=== PATIENT | male | born 1955 | race Caucasian/White ===

== ENCOUNTER 2022-03-10 09:30 | Emergency (ER) | payer OTHER, SELFPAY ==
[2022-03-10] VITALS (18 sets, daily range): BP systolic 134–180; BP diastolic 82–117; PULSE 80–104; RESP 10–24; TEMP 36.4; O2SAT 94–100
--- NOTE | ~2022-03-10 | XR_ITS ---
XR chest 1V portable DATE: 03/10/2022 10:39 INDICATION: Left arm numbness, weakness. Smoker. TECHNIQUE: Portable upright AP views on 03/10/2027 at 1037 1038 hours COMPARISON: None FINDINGS: Normal heart size. Minimal aortic tortuosity. No hilar or mediastinal enlargement. Mild hyperinflation of the lungs. No pulmonary infiltrate or consolidation, pleural effusion or pulmo nary vascular congestion or pneumothorax. Osteopenia. IMPRESSION: Mild hyperinflation; no active cardiac pulmonary disease Osteopenia Reviewed, dictated and finalized at location A.
--- NOTE | ~2022-03-10 | CT_ITS ---
EXAMINATION: CT brain wo con DATE: 03/10/2022 11:22 INDICATION: Frontal headache. Left arm paresthesias. TECHNIQUE: Computed tomography (CT) of the head was performed without intravenous contrast. The mA wa s adjusted according to patient size. Iterative reconstruction technique was employed. Exam dose: 60 5.33 mGy-cm total exam DLP. COMPARISON: None FINDINGS: Bilateral vertebral artery and carotid siphon and supraclinoid internal carotid artery calc ifications. There is nonspecific diminished attenuation of the cerebral white matter, likely due to chronic small vessel ischemic changes. Normal ventricular size. No midline shift or mass effect. No intracranial mass lesion or hemorrhage o r cerebrovascular accident. No subdural or epidural hematoma. Mild soft tissue density in the posterior right maxillary sinus and right ethmoid air cells, minimal soft tissue thickening of the ethmoid air cells bilaterally. The paranasal sinuses are otherwise unre markable. Normal development and aeration of the mastoid air cells. No fracture or bone destruction of the cranial vault. IMPRESSION: Cerebral atherosclerosis and chronic small vessel ischemic changes of the cerebral white matter No acute intracranial finding Reviewed, dictated and finalized at Location [facility]. Reviewed, dictated and finalized at location A.
--- NOTE | 2022-03-10 10:09 | ECG_ITS ---
Measurements Intervals [place] Rate: 88 P: 29 LA: 159 QRS: 46 QRSD: 82 T: 48 QT: 347 QTc: 422 Interpretive Statements SINUS RHYTHM INCOMPLETE RIGHT BUNDLE BRANCH BLOCK BASELINE ARTIFACT- II, III, AVF, V1 BORDERLINE ECG Electronically Signed On 03-10-2022 15:20:33 CDT by Levy Paul D.O.
--- NOTE | 2022-03-10 10:18 | ED.NEUROSD ---
HPI - Neuro Symptoms/Deficit General Chief Complaint: Neuro Symptoms/Deficit <KENNETH Ayala Last Filed: 03/10/22 13:43> Stated Complaint: L arm numbness <KENNETH Ayala Last Filed: 03/10/22 13:43> Time Seen by Provider: 03/10/22 10:09 <KENNETH Ayala Last Filed: 03/10/22 13:43> Source: patient <KENNETH Ayala Last Filed: 03/10/22 13:43> Mode of arrival: ambulatory <KENNETH Ayala Last Filed: 03/10/22 13:43> Limitations: no limitations <KENNETH Ayala Last Filed: 03/10/22 13:43> History of Present Illness HPI Narrative: This is a 66-year-old male that presents to the emergency department for paresthesias of the left arm noted this morning. Reports a little after he woke up he noted some tingling in his left arm. He thinks this started around 730. It has been constant since onset. Denies any other focal numbness or weakness. He is not having any chest pain, neck pain, or arm pain. Denies vision changes or vomiting. <KENNETH Ayala Last Filed: 03/10/22 13:43> Related Data Allergies/Adverse Reactions: Allergies Allergy/AdvReac Type Severity Reaction Status Date / Time No Known Allergies Allergy Verified 03/10/22 09:51 <KENNETH Ayala Last Filed: 03/10/22 13:43> Review of Systems Review of Systems: CONSTITUTIONAL: Denies fever EYES: Denies visual changes CARDIOVASCULAR: Denies chest pain, or edema. RESPIRATORY: Denies dyspnea. GASTROINTESTINAL: Denies vomiting MUSCULOSKELETAL: Denies back pain, joint pain, or myalgia. NEUROLOGIC: Denies numbness, or weakness. <KENNETH Ayala Last Filed: 03/10/22 13:43> All systems reviewed & are unremarkable except as noted in HPI and below <KENNETH Ayala Last Filed: 03/10/22 13:43> PMFSH Past Medical History Medical History: Medical History (Updated 03/10/22 @ 13:41 by Ana Rodriguez PA-C) History of hyperlipidemia History of hypertension <Ana Rodriguez PA-C - Last Filed: 03/10/22 13:43> Social History Social History: Social History (Updated 03/10/22 @ 10:20 by Ana Rodriguez PA-C) Smoking status: Current every day smoker <Ana Rodriguez PA-C - Last Filed: 03/10/22 13:43> Exam Narrative: GENERAL: Well-appearing, well-nourished, and in no acute distress. HEAD: Normocephalic, atraumatic. EYES: PERRLA and EOMI. ENT: Nares clear, no rhinorrhea or epistaxis. Mucous membranes moist. Oropharynx without tonsillar hypertrophy exudate or other lesions. Bilateral TMs pearly hurtado non-bulging NECK: Supple. No adenopathy or masses. CHEST: Clear to auscultation. No respiratory distress. No wheezes rales or rhonchi HEART: Regular rate and rhythm. No murmur heard. Normal peripheral pulses. EXTREMITIES: Normal range of motion. No edema. Strength equal in bilateral upper and lower extremities (5/5). Normal sensation SKIN: Warm, dry, no rash. NEURO: No focal deficits. Alert and oriented x3. Cranial nerves II through XII grossly intact PSYCH: Normal mood and affect <Ana Rodriguez PA-C - Last Filed: 03/10/22 13:43> Course FISHING ROD TRIMMER/PA Physician Supervision For this patient encounter, I reviewed the FISHING ROD TRIMMER or PA documentation, treatment plan, and medical decision making <Jose Cordova MD - Last Filed: 03/10/22 18:19> Consultations Consultation #1: Spoke with patient's primary about work-up who will follow-up in clinic. Would like patient to start taking an aspirin daily <Ana Rodriguez PA-C - Last Filed: 03/10/22 13:43> Date: 03/10/22 <Ana Rodriguez PA-C - Last Filed: 03/10/22 13:43> Vital Signs Vital signs: Vital Signs Temperature 97.6 F 03/10/22 09:37 Pulse Rate 100 03/10/22 09:37 Respiratory Rate 16 03/10/22 09:37 Blood Pressure 180/87 H 03/10/22 09:37 Pulse Oximetry 100 03/10/22 09:37 Temperature 97.6 F 03/10/22 09:37 Pulse Rate 86 03/10/22 13:48 Respiratory Ra
[2022-03-10 10:28] LABS: Glucose Point of Care 121 mg/dl (65-105)
[2022-03-10 10:39] LABS: Basophils Absolute Auto 0.1 K/mm3 (0.0-0.1); Basophils Percent Auto 0.7 % (0.2-1.2); Eosinophils Absolute Auto 0.2 K/mm3 (0-0.3); Eosinophils Percent Auto 2.5 % (0-4.4); Hematocrit 42.4 % (42.0-52.0); Hemoglobin 14.9 g/dL (14.0-18.0); Immature Granulocyte Absolute 0.02 K/mm3 (0.00-0.031); Immature Granulocyte Percent A 0.3 % (0-0.5); Lymphocytes Absolute Auto 1.85 K/mm3 (0.9-3.2); Lymphocytes Percent Auto 26.7 % (18.3-44.2); Mean Corpuscular HGB Conc 35.1 g/dl (32-36); Mean Corpuscular Hemoglobin 31.6 pg (26-34); Mean Corpuscular Volume 89.8 fl (80-100); Monocytes Absolute Auto 0.6 K/mm3 (0.1-0.6); Monocytes Percent Auto 7.9 % (2.6-8.5); Neutrophils Absolute Auto 4.3 K/mm3 (1.3-6.7); Neutrophils Percent Auto 61.9 % (45.5-73.1); Platelet Count Result 175 k/mm3 (150-375); Red Blood Count 4.72 M/mm3 (4.6-6.20); White Blood Count 6.9 K/mm3 (4.5-10.0)
[2022-03-10 10:52] LABS: INR 1.1; Prothrombin Time 13.3 Seconds (11.1-14.7)
[2022-03-10 10:53] LABS: Alanine Aminotransferase 23 U/L (6-50); Albumin Level 5.3 g/dL (3.5-5.1); Alkaline Phosphatase 95 U/L (38-126); Anion Gap 6 mmol/L (8-16); Aspartate Amino Transferase 22 U/L (17-59); Bilirubin,Total 0.7 mg/dL (0.2-1.3); Blood Urea Nitrogen 12 mg/dL (9-20); Calcium 9.4 mg/dL (8.4-10.2); Carbon Dioxide 28 mmol/L (22-30); Chloride 95 mmol/L (98-107); Estimated CRCL calculation 64 ml/min; Estimated Glomerular Filt Rate > 60; Glucose 108 mg/dL (65-110); Partial Thromboplastin Time 31.3 SECONDS (22.3-36.8); Potassium 4.2 mmol/L (3.4-5.0); Sodium 129 mmol/L (137-145)
[2022-03-10] MEDS: LOSARTAN POTASSIUM 50 MG TABLET PO (11:00)
[2022-03-10 11:04] LABS: Troponin I < 0.012 ng/mL (0.000-0.034)
[2022-03-10] MEDS: SODIUM CHLORIDE 0.9% IV 500 ML 999 ML IV CONT (11:25)
== END 2022-03-10 13:51 | disposition home or self-care (01) ==
PROVIDERS: Physician Assistant; Emergency Provider Emergency Medicine
DX: R20.2 Paresthesia of skin (principal); E87.1 Hypo-osmolality and hyponatremia; E78.5 Hyperlipidemia, unspecified; I10 Essential (primary) hypertension; F17.200 Nicotine dependence, unspecified, uncomplicated; I67.2 Cerebral atherosclerosis; I45.10 Unspecified right bundle-branch block; M85.88 Other specified disorders of bone density and structure, other site
CPT/HCPCS: 36415; 70450; 71045; 80053; 82948; 84484; 85025; 85610; 85730; 93005; 96360; 99284; A9270; J7040

== ENCOUNTER 2022-10-11 02:36 | Day surgery (SDC) | payer OTHER, SELFPAY ==
[2022-09-28 09:15] VITALS: BMI 24.4
--- NOTE | 2022-10-10 13:09 | PM.HPGS ---
History of Present Illness History of Present Illness Consent: Risks, benefits, and alternatives have been discussed and questions answered. Patient agrees to proceed with procedure. Chief complaint: positive cologuard Narrative: Steve Burns is a 66 year old male referred for colon cancer screening. Review of Systems Review of Systems: All systems reviewed & are unremarkable except as noted in HPI and below PMFSH Past Medical History Medical History History of hyperlipidemia History of hypertension Social History Social History Smoking packs per day: 1 Smoking cigarettes per day: 20.0 Years smoked: 30 Smoking pack-years: 30.00 Smoking status: Former smoker Tobacco type: cigarettes and e-cigarettes/vaping Additional smoking assessment comments: VAPES AND OCC. CIG. NOW Alcohol intake: current Substance use: never Substance use type: does not use Living arrangements: with family Spiritual care concerns: No Meds Home Medications and Allergies Home Medications Medication Instructions Recorded Confirmed Type aspirin 81 mg tablet,delayed 81 mg PO DAILY 09/28/22 10/11/22 History release losartan 50 mg-hydrochlorothiazide 1 tablet PO DAILY 09/28/22 10/11/22 History 12.5 mg tablet sildenafil 100 mg tablet 100 mg PO DIRECTED PRN Erectile 09/28/22 10/11/22 History Dysfunction simvastatin 40 mg tablet 40 mg PO DAILY 09/28/22 10/11/22 History Allergies Allergy/AdvReac Type Severity Reaction Status Date / Time No Known Allergies Allergy Verified 10/11/22 06:43 Exam Resp: Auscultation: clear to auscultation bilaterally Cardio: Rate: regular rate Rhythm: regular rhythm GI: GI Palp: Yes Soft to palpation and No Tenderness to palpation present (GI) Assessment and Plan Assessment and plan (1) Colon cancer screening: Code(s): Z12.11 - Encounter for screening for malignant neoplasm of colon Status: Acute Assessment and Plan: Colonoscopy with possible biopsy or polypectomy or cautery or injection of substances.
[2022-10-11] MEDS: LACTATED RINGERS 1,000 ML 150 ML IV CONT (06:39)
[2022-10-11 06:44] VITALS: BP 133/91; PULSE 105; RESP 18; TEMP 36.1; O2SAT 100
--- NOTE | 2022-10-11 06:53 | P.PNAN_ITS ---
Anes - Initial Pre Proc Eval Procedure: Operation Date: 10/11/22 08:00 Proposed Procedures p Colonoscopy - Arnold Lopez MD Date/Time: 10/11/22 06:53 Surgeon: Arnold Lopez MD Pre Op Diagnosis: positive cologuard Patient Data Age: 66 Gender: M Height: 1.78 m Weight: 96.9 kg Last Vital Signs Temp 36.1 C L 10/11/22 06:44 Pulse 105 H 10/11/22 06:44 Resp 18 10/11/22 06:44 BP 133/91 H 10/11/22 06:44 Pulse Ox 100 10/11/22 06:44 O2 Del Method Room Air 10/11/22 06:44 Allergies Allergy/AdvReac Type Severity Reaction Status Date / Time No Known Allergies Allergy Verified 10/11/22 06:43 Home Medications Medication Instructions Recorded Confirmed Type aspirin 81 mg tablet,delayed 81 mg PO DAILY 09/28/22 10/11/22 History release losartan 50 mg-hydrochlorothiazide 1 tablet PO DAILY 09/28/22 10/11/22 History 12.5 mg tablet sildenafil 100 mg tablet 100 mg PO DIRECTED PRN Erectile 09/28/22 10/11/22 History Dysfunction simvastatin 40 mg tablet 40 mg PO DAILY 09/28/22 10/11/22 History Patient hx anesthesia problems: none Family hx anesthesia problems: none Results Review: All pre-operative results and documents have been reviewed as part of the pre- operative evaluation. [facility] Past Medical History Medical History (Updated 10/10/22 @ 13:10 by Arnold Lopez MD) History of hyperlipidemia History of hypertension Social History Social History Smoking packs per day: 1 Smoking cigarettes per day: 20.0 Years smoked: 30 Smoking pack-years: 30.00 Smoking status: Former smoker Tobacco type: cigarettes and e-cigarettes/vaping Additional smoking assessment comments: VAPES AND OCC. CIG. NOW Alcohol intake: current Substance use: never Substance use type: does not use Living arrangements: with family Spiritual care concerns: No Anes - Eval Final PreProcedure Day of Procedure 10/11/22 06:53 Patient weight: overweight Heart: regular rate and rhythm Lungs: clear to auscultation Airway: Mallampati scale class II Neurological: alert and oriented Last oral intake: >/= 8 hours ASA classification: III Emergent: no Anesthetic plan: proceed Anesthesia type and monitoring: general GIVS and standard monitoring Results Review: All pre-operative results and documents have been reviewed as part of the pre- operative evaluation. Informed Consent: The patient's anesthetic plan and its attendant risks and benefits were discussed with the patient/family/POA. Questions were solicited and answers provided to the satisfaction of the patient/family/POA.
[2022-10-11 08:29] VITALS: BP 94/64; PULSE 75; RESP 20; O2SAT 100
[2022-10-11 08:39] VITALS: BP 95/67; PULSE 75; RESP 16; O2SAT 100
[2022-10-11 08:49] VITALS: BP 120/80; PULSE 73; RESP 16; O2SAT 100
== END 2022-10-11 08:58 | disposition home or self-care (01) ==
PROVIDERS: Visit Provider Internal Medicine Gastroenterology
PROC: 0DJD8ZZ Inspection of Lower Intestinal Tract, Via Natural or Artificial Opening Endoscopic (ICD-10-PCS; CPT 45378; principal; 2022-10-11 08:00)
DX: Z12.11 Encounter for screening for malignant neoplasm of colon (principal); D12.0 Benign neoplasm of cecum; D12.4 Benign neoplasm of descending colon; D12.8 Benign neoplasm of rectum; R19.5 Other fecal abnormalities; K64.8 Other hemorrhoids; I10 Essential (primary) hypertension; E78.5 Hyperlipidemia, unspecified; Z79.82 Long term (current) use of aspirin; F17.290 Nicotine dependence, other tobacco product, uncomplicated; F17.210 Nicotine dependence, cigarettes, uncomplicated
CPT/HCPCS: 45380; 45385; 45381; 88305; J2704; J7120

== ENCOUNTER 2025-03-03 02:03 | Day surgery (SDC) | payer OTHER, SELFPAY ==
[2025-02-19 10:50] VITALS: BMI 23.0
--- OUTSIDE RECORDS SUMMARY | 2025-03-03 02:07 | XMS_ITS | Data Portability ---
Author Organization [facility] [employer], Main Office Address [address] [place] [address] Assessment No assessment recorded. Plan of Treatment Reminders Order Date Submit Date Provider Last Modified By Organization Details Last Modified Time Details Appointments None recorded. Lab lipid panel, serum [address] (Lab), [address] [place], [address], 5 09:41:34 CMP, serum or plasma [address] (Lab), [address] [place], [address], 5 09:41:34 CBC w/ auto diff [address] (Lab), [address] [place], [address], 5 09:41:34 TSH, serum or plasma [address] (Lab), [address] [place], [address], 5 09:41:34 glycohemog lobin, total, blood [address] (Lab), [address] [place], [address], 5 09:41:35 Referral pain management referral - Please call patient to schedule an appointmen t. Thank you. 2024 025 [facility], [address], [place], [address], 5 09:09:35 Procedures None recorded. Surgeries None recorded. Imaging LDCT, chest, for lung cancer screening - Please call patient to schedule. 2024 025 [facility], [address], [place], [address], 11:20:43 Medication Orders Breztri Aerosphere 160 mcg-9mcg-4 .8mcg/actu ation HFA aerosol inhaler 2024 025 [facility] [address] [facility], [address], [place], [address], 10:37:32 Patient TargetsNo targets recorded. Patient InstructionsNo instructions recorded. Reason for Referral Pain Management Referral for Cervical spondylosis Please call patient to schedule an appointment. Thank you. Referring Physician: Hanh Winkler, Family Medicine, Encounter Date: 02/09/2025 Problems Name Problem SNOMED Code Status Onset Date Resolution Date Notes Provider Name and Address Organization Details Recorded Time Mild chronic obstructive pulmonary disease 665936877 Active 2024 [facility] [address], [place], [address], 2 [employer] 5 10:27:48 Easy bruising 972200982 Active 2024 [facility] [address], [place], [address], 2 [employer] 5 10:32:20 Cervical spondylosis 609267570 Active 2024 [facility] [address] [employer], [address], [place], [address], 2 [employer] 10:36:52 Essential hypertension 84661568 Active 2024 Hanh Winkler[facility] [address] [facility], [address], [place], [address], [facility] [email or web address] [facility] 10:37:41 Mixed hyperlipidemia 110048644 Active 2024 Hanh Winkler [facility] [address] [facility], [address], [place], [address], [facility] [email or web address] [facility] 10:37:57 Problem Notes None recorded. Medical Equipment None Reported. Allergies No known drug allergies Medications Name Sig Start Date Stop Date Status Note LastModified by Organization Details LastModified Time azithromyci n 250 mg tablet TAKE 2 TABLET BY ORAL ROUTE EVERY DAY FOR 1 DAY THEN 1 TABLET (250 MG) BY ORAL ROUTE FOR 4 DAYS 02/09 completed Not Available Not Available Not Available sildenafil 100 mg tablet TAKE 1 TABLET BY MOUTH APPROXIMA TELY 1 HOUR BEFORE SEXUAL ACTIVITY NEEDED 02/09 completed Not Available Not Available Not Available simvastatin 40 mg tablet TAKE 1 TABLET BY MOUTH IN THE EVENING FOR CHOLESTER OL active Not Available Not Available No t Available azelastine 137 mcg (0.1 %) nasal spray SPRAY 1 SPRAY INTO EACH NOSTRIL TWICE A DAY 02/09 completed Not Available Not Available Not Available losartan 50 mg-hydrochl orothiazide 12.5 mg tablet TAKE 1 TABLET BY MOUTH EVERY DAY FOR BLOOD PRESSURE 02/09 completed Not Available Not Available Not Available losartan 100 mg tablet TAKE 1 TABLET BY MOUTH EVERY DAY active Not Available Not Available No t Available Trelegy Ellipta 100 mcg-62.5 mcg-25 mcg powder for inhalation INHALE 1 PUFF BY INHALATIO N ROUTE EVERY DAY AT THE SAME TIME EACH DAY active Not Available Not Available No t Available Breztri Aerosphere 160 mcg-9mcg-4. 8mcg/actuat ion HFA aerosol inhaler Inhale 2 puffs twice a day by inhalatio n route as directed for 90 days. 2024 active Not Available Not Available Not Avai lable Vitals Date Recorded Body weight Body mass index (BMI) Body height Body temperature Heart rate Respiratory rate Oxygen saturation Oxygen saturation in Arterial blood by Pulse oximetry Systolic And Diastolic Provider Name and Address Organization Details Last Updated DateTime 68630.9 4 g 22.9 kg/m2 177.8 cm 97.2 [degF] 102 /min 24 /min 98 % 98 % 148/88 mm[Hg] Annamarie Schmid RN [facility] [email or web address] [facility] 10:14:22 Social History Question Answer Notes LastModified by Organizat ion Details LastModified Time Tobacco Smoking Status Former Smoker Annamarie Schmid RN null, [facility] [email or web address] [facility] 02/09/2025 10:18:22 Are You Blind Or Do You Have Difficulty Seeing? Yes Information not available 02/09/2025 What Is Your Level Of Caffeine Consumption? Heavy Information not available 02/09/2025 In The 14 Days Before Symptom Onset, Have You Had Close Contact With A Laboratory-confi rmed COVID-19 While That Case Was Ill? No Information not available 02/09/2025 In The 14 Days Before Symptom Onset, Have You Had Close Contact With A Person Who Is Under Investigation For COVID-19 While That Person Was Ill? No Information not available 02/09/2025 Are You Deaf Or Do You Have Serious Difficulty Hearing? Yes Hearing Aids Information not available 02/09/2025 What Type Of Diet Are You Following? REGULAR Information not available 02/09/2025 Have There Been Any Changes To Your Family Or Social Situation? No Information not available 02/09/2025 Do You Use Insect Repellent Routinely? No Information not available 02/09/2025 Where Do You Live? [facility] Information not available 02/09/2025 How Many Children Do You Have? 2 Information not available 02/09/2025 Do You Have Any Pets? No Information not available 02/09/2025 What Is Your Relationship Status? Information not available 02/09/2025 Do You Use Your Seat Belt Or Car Seat Routinely? Yes Information not available 02/09/2025 Do You Have Smoke And Carbon Monoxide Detectors In Your Home? Yes Information not available 02/09/2025 At What Age Did You Start Smoking Tobacco? 19 Information not available 02/09/2025 Are You Passively Exposed To Smoke? No Information not available 02/09/2025 Are There Any Smokers In Your House? No Information not available 02/09/2025 How Much Tobacco Do You Smoke? 0.5 PPD Information not available 02/09/2025 Do You Participate In Social Media? No Information not available 02/09/2025 Do You Use Sunscreen Routinely? Yes Information not available 02/09/2025 How Many Years Have You Smoked Tobacco? 50 Information not available 02/09/2025 Have You Recently Traveled Abroad? No Information not available 02/09/2025 Do You Have Difficulty Walking Or Climbing Stairs? No Information not available 02/09/2025 Sex: Unknown Functional Status Question Answer Note LastModified by [employer] Details LastModified Time Do you use any illicit or recreational drugs? No Information not available 02/09/2025 Do you or have you ever used any other forms of tobacco or nicotine? Yes Information not available 02/09/2025 What is your level of alcohol consumption? Occasional Information not available 02/09/2025 Are you currently employed? Yes Information not available 02/09/2025 Do you have transportation difficulties? No Information not available 02/09/2025 Are you able to walk? YESWOREST Information not available 02/09/2025 Do you have difficulty doing errands alone? No Information not available 02/09/2025 Are you able to care for yourself? Yes Information n ot available 02/09/2025 What is your occupation? self employed Information not available 02/09/2025 Do you have difficulty dressing or bathing? No Information not available 02/09/2025 Do you or have you ever used e-cigarettes or vape? Current user of electronic cigarettes every now and then Information not available 02/09/2025 Mental Status Question Answer Note LastModified by Organizat ion Details LastModified Time Do you feel stressed (tense, restless, nervous, or anxious, or unable to sleep at night)? [id number] Information not available 02/09/2025 Do you have difficulty concentrating, remembering or making decisions? Yes Information no t available 02/09/2025 Family History Relationship Description Onset Age of this Age Resolved Age Notes LastModified by Organization Details LastModified Time Mother Myocardial infarction Not available 02/09 10:15:26 Father Malignant neoplastic disease Not available 2024 10:15:36 Medical History Condition Response HIGH CHOLESTEROL / HYPERLIPIDEMIA Y HYPERTENSION Y Past Encounters Encounter ID Performer Location Encounter Start Date Encounter Closed Date Diagnosis/Indication Diagnosis SNOMED-CT Code Diagnosis ICD10 Code Diagnosis Note [id number] Jorge Cm MD [facility] [address] [address] 02/09/2025 09:56:58 02/09/2025 11:10:11 Physical examination 5351687 Z00.00 Patient is overall healthyHea lth maintenanc e reviewedDi scussed diet and exercisePa tient questions answered Mild chron ic obstructive pulmonary disease 881919154 J44.9 Currently taking Trelegy, this is very expensive and he has not noticed improvemen t in breathing. Easy bruising 849580034 R23.3 Interested in Dermend Cervical spondylosis 387 839639 M47.812 Notes this is causing moderate pain and headaches Essential hypertension 44279320 I10 Well controlled with losartan Mixed hyperlipidemia 267 714307 E78.2 Well controlled with simvastati n, will check labs as follows Diabetes m ellitus screening 803158654 Z13.1 History of nicotine dependence 1018137639 98641557 Z87.891 LDCT: 50 year smoker, 1/2 ppd, 25 pack year. Ordered Health Concerns Section Related Observation LastModified by Organization Detai ls LastModified Time None Recorded Concern Status LastModified by Organization Details LastModified Time None Recorded Advance Directives Directive None Recorded Payers Insurance Date Sequence Insurance Name Policy Number Policy Lee Covered Member ID Lee Member ID Guarantor Name 02/23/2025 1 [place] Steve Burns [id number] Steve Burns Notes Date Note Type Note Provider Name and Address Organization Details Recorded Time 02/09/2025 text/html Steve Burns is a 69 year old male patient here today to establish care. His last doctor retired. His past medical history is significant for hypertension. BP on arrival today 148/88. He does not check his BP at home. He is currently taking losartan 100 mg daily. Hyperlipidemia. Last labs unknownThey are currently taking simvastatin 40 mg. Denies muscle cramping.Advised to limit fatty/greasy foods and increase cardiovascular exercise COPD, he does takes trelegy. He states he does not notice any difference. He is paying $500 every three months. We will try Breztri instead. History of arthritis in the neck, this does cause headaches. History of elevated PSA, he sees a urologist. Flu shot: OVID vaccines: x1 2020 - caused sicknessTdap: believes UTDPneumonia vaccines: PCV 20 completedShingrix: completedPSA managed by urologyColonoscopy scheduled for FebruaryLDCT: 50 year smoker, 1/2 ppd, 25 pack year. Ordered [facility] [address] [facility], [facility] [address], [place], [address], [facility] [employer] 02/09/2025 10:52:19
--- OUTSIDE RECORDS SUMMARY | 2025-03-03 02:07 | XMS_ITS | Clinical Summary ---
Author Organization [facility] Address [address] [place] [address] Care Team Providers Care Bathhouse Keeper Name Role Phone Unavailable Primary Care Provider Unavailabl e Social History Tobacco Use Types Packs/Day Years Used Date Smoking Tobacco: Never Assessed Sex and Gender Information Value Date Recorded Sex Assigned at Not on file Legal Sex Male 7:18 PM [employer] Gender Identity Not on file Sexual Orientation Not on file Plan of Treatment Health Maintenance Due Date Last Done Comments DTAP/TDAP/TD VACCINES (1 - Tdap) 1972 PNEUMOCOCCAL VACCINE 50+ YEA RS (1 of 2 - PCV) 1972 COLORECTAL SCREENING 1998 Colorectal Cancer Screening 1998 FIT-DNA Q 3 years 1998 FIT/FOBT Q 1 year 1998 Flex Sig/CT Colonography Q 5 years 1998 ZOSTER VACCINE (1 of 2) 12/25/2003 RSV VACCINE (60+ or ) (1 - Risk 60-74 years 1-dose series) 2013 INFLUENZA VACCINE (#1) 2025 05/27/2024, 2022 Insurance [facility]
[2025-03-03 10:27] VITALS: BP 171/99; PULSE 91; RESP 19; TEMP 36.8; O2SAT 100
[2025-03-03] MEDS: LACTATED RINGERS 1,000 ML 150 ML IV CONT (10:29)
--- NOTE | 2025-03-03 10:55 | P.PNAN_ITS ---
Anes - Initial Pre Proc Eval Procedure: Operation Date: 03/03/25 14:30 Proposed Procedures p Screening Colonoscopy - Humberto Graham MD Date/Time: 03/03/25 10:55 Surgeon: Humberto Graham MD Pre Op Diagnosis: Hx of polyps Patient Data Age: 69 Gender: M Height: 1.78 m Weight: 70.6 kg Last Vital Signs Temp 98.2 F 03/03/25 10:27 Pulse 91 03/03/25 10:27 Resp 19 03/03/25 10:27 BP 171/99 H 03/03/25 10:27 Pulse Ox 100 03/03/25 10:27 O2 Del Method Room Air 03/03/25 10:27 Allergies Allergy/AdvReac Type Severity Reaction Status Date / Time No Known Allergies Allergy Verified 03/03/25 10:26 Home Medications ?Medication ?Instructions ?Recorded ?Confirmed ?Type aspirin 81 mg tablet,delayed 81 mg PO DAILY 09/28/22 03/03/25 History release sildenafil 100 mg tablet 100 mg PO DIRECTED PRN Erectile 09/28/22 02/19/25 History Dysfunction simvastatin 40 mg tablet 40 mg PO DAILY 09/28/22 03/03/25 History fluticasone fur. 100 mcg-umeclid 1 inh inhalation Q24H 02/19/25 03/03/25 History 62.5 mcg-vilant 25 mcg inhalat.powder (Trelegy Ellipta) losartan 100 mg tablet 100 mg PO DAILY 02/19/25 03/03/25 History Patient hx anesthesia problems: none Family hx anesthesia problems: none Results Review: All pre-operative results and documents have been reviewed as part of the pre- operative evaluation. [facility] Past Medical History Medical History History of hyperlipidemia History of hypertension Social History Social History Smoking packs per day: 1 Smoking cigarettes per day: 20.0 Years smoked: 30 Smoking pack-years: 30.00 Smoking status: Former smoker Tobacco type: cigarettes and e-cigarettes/vaping Additional smoking assessment comments: VAPES currently, quick cigarettes Alcohol intake: current Drinks per week: 4 Substance use: never Substance use type: does not use Living arrangements: with family Spiritual care concerns: No Anes - Eval Final PreProcedure Day of Procedure 03/03/25 10:55 Patient weight: normal Lungs: normal air movement Airway: Mallampati scale class II Neurological: alert and oriented Last oral intake: >/= 8 hours ASA classification: II Emergent: no Anesthetic plan: proceed Anesthesia type and monitoring: general GIVS and standard monitoring Results Review: All pre-operative results and documents have been reviewed as part of the pre- operative evaluation. HTN, hyperlipidemia, ex smoker, quit 2023. Informed Consent: The patient's anesthetic plan and its attendant risks and benefits were discussed with the patient/family/POA. Questions were solicited and answers provided to the satisfaction of the patient/family/POA.
--- NOTE | 2025-03-03 11:01 | PM.HPGS ---
History of Present Illness History of Present Illness Consent: Risks, benefits, and alternatives have been discussed and questions answered. Patient agrees to proceed with procedure. Chief complaint: Hx of polyps Narrative: Steve Burns is a 69 year old male with colon polyps in 2022 Review of Systems Review of Systems: All systems reviewed & are unremarkable except as noted in HPI and below PMFSH Past Medical History Medical History (Updated 03/03/25 @ 11:02 by Humberto Graham MD) Adenomatous colon polyp History of hyperlipidemia History of hypertension Social History Social History Smoking packs per day: 1 Smoking cigarettes per day: 20.0 Years smoked: 30 Smoking pack-years: 30.00 Smoking status: Former smoker Tobacco type: cigarettes and e-cigarettes/vaping Additional smoking assessment comments: VAPES currently, quick cigarettes Alcohol intake: current Drinks per week: 4 Substance use: never Substance use type: does not use Living arrangements: with family Spiritual care concerns: No Meds Home Medications and Allergies Home Medications ?Medication ?Instructions ?Recorded ?Confirmed ?Type aspirin 81 mg tablet,delayed 81 mg PO DAILY 09/28/22 03/03/25 History release sildenafil 100 mg tablet 100 mg PO DIRECTED PRN Erectile 09/28/22 02/19/25 History Dysfunction simvastatin 40 mg tablet 40 mg PO DAILY 09/28/22 03/03/25 History fluticasone fur. 100 mcg-umeclid 1 inh inhalation Q24H 02/19/25 03/03/25 History 62.5 mcg-vilant 25 mcg inhalat.powder (Trelegy Ellipta) losartan 100 mg tablet 100 mg PO DAILY 02/19/25 03/03/25 History Allergies Allergy/AdvReac Type Severity Reaction Status Date / Time No Known Allergies Allergy Verified 03/03/25 10:26 Vital Signs Vital Signs - 24 hr 03/03/25 10:27 Temperature 98.2 F Pulse Rate 91 Respiratory Rate 19 Blood Pressure 171/99 H Pulse Oximetry 100 Oxygen Delivery Room Air Exam Const: General: comfortable and no acute distress HENMT: Face/Nose/Sinus: Normal nares present Eyes: General: appearance normal, both eyes and all related structures Neck: Neck: no JVD Resp: Auscultation: clear to auscultation bilaterally Cardio: Rate: regular rate Rhythm: regular rhythm GI: Inspection: non-distended GI Palp: Yes Soft to palpation Skin: General skin exam: normal color Neuro: Speech: normal speech Extrem: General: normal to inspection Psych: Mental Status: mental status grossly normal Assessment and Plan Assessment and plan (1) Adenomatous colon polyp: Code(s): D12.6 - Benign neoplasm of colon, unspecified Status: Acute Assessment and Plan: colonoscopy
[2025-03-03 11:15] VITALS: BP 112/83; PULSE 82; RESP 20; O2SAT 100
[2025-03-03 11:25] VITALS: BP 126/81; PULSE 76; RESP 18; O2SAT 100
[2025-03-03 11:35] VITALS: BP 128/75; PULSE 75; RESP 18; O2SAT 100
== END 2025-03-03 11:43 | disposition home or self-care (01) ==
PROVIDERS: Referring Provider Internal Medicine Gastroenterology; Visit Provider Internal Medicine Gastroenterology
PROC: 0DJD8ZZ Inspection of Lower Intestinal Tract, Via Natural or Artificial Opening Endoscopic (ICD-10-PCS; CPT 45378; principal; 2025-03-03 14:30)
DX: Z12.11 Encounter for screening for malignant neoplasm of colon (principal); K64.8 Other hemorrhoids; E78.5 Hyperlipidemia, unspecified; I10 Essential (primary) hypertension; F17.290 Nicotine dependence, other tobacco product, uncomplicated; Z79.82 Long term (current) use of aspirin; Z79.51 Long term (current) use of inhaled steroids; Z86.0100 Personal history of colon polyps, unspecified
CPT/HCPCS: G0105; J2704; J7120

== ENCOUNTER 2025-03-16 23:39 | Emergency (ER) | payer OTHER, SELFPAY ==
--- NOTE | ~2025-03-16 | XR_ITS ---
EXAMINATION: XR chest 2V 03/17/2025 00:24 INDICATION: Left-sided chest pain PROCEDURE: 2 view chest COMPARISON: 03/10/2022 FINDINGS: The lungs are clear. The cardiomediastinal silhouette is within normal limits. There are no pleural effusions. There is no pneumothorax suspected. IMPRESSION: 1: NO ACUTE CARDIOPULMONARY DISEASE. Reviewed, dictated and finalized at location A.
--- OUTSIDE RECORDS SUMMARY | 2025-03-16 23:42 | XMS_ITS | Data Portability ---
Author Organization [facility], Main Office Address [address] [place] [address] Assessment No assessment recorded. Plan of Treatment Reminders Order Date Submit Date Provider Last Modified By Organization Details Last Modified Time Details Appointments None recorded. Lab lipid panel, serum [address] (Lab), [address] [place], [address], 5 09:41:34 CMP, serum or plasma [address] (Lab), [address] [place], [address], 5 09:41:34 CBC w/ auto diff [address] (Lab), [address] [place], [address], 5 09:41:34 TSH, serum or plasma [address] (Lab), [address] [place], [address], 5 09:41:34 glycohemog lobin, total, blood [address] (Lab), [address] [place], [address], 5 09:41:35 Referral pain management referral - Please call patient to schedule an appointmen t. Thank you. 2024 025 [facility], [address], [place], [address], 09:09:35 Procedures None recorded. Surgeries None recorded. Imaging LDCT, chest, for lung cancer screening - Please call patient to schedule. [address] [facility], [address], [place], [address], 17:35:51 Medication Orders Breztri Aerosphere 160 mcg-9mcg-4 .8mcg/actu ation HFA aerosol inhaler 2024 025 [facility] [address] [facility], [address], [place], [address], 10:37:32 Patient TargetsNo targets recorded. Patient InstructionsNo instructions recorded. Reason for Referral Pain Management Referral for Cervical spondylosis Please call patient to schedule an appointment. Thank you. Referring Physician: Hanh Winkler, Family Medicine, Encounter Date: 02/09/2025 Problems Name Problem SNOMED Code Status Onset Date Resolution Date Notes Provider Name and Address Organization Details Recorded Time Mild chronic obstructive pulmonary disease 396077917 Active 2024 T[facility] [address], [place], [address], [facility] 10:27:48 Easy bruising 743989717 Active 2024 TACOS Solis [address], [address], [place], [address], [facility] 5 10:32:20 Cervical spondylosis 675974046 Active 2024 TAC[facility] Solis [address], [address], [place], [address], [facility] 10:36:52 Essential hypertension 91912694 Active 2024 Hanh Winkler [facility] [address] [facility], [address], [place], [address], [facility] 10:37:41 Mixed hyperlipidemia 853489112 Active 2024 [facility] [address], [address], [place], [address], [facility] 10:37:57 Problem Notes None recorded. Medical [...] and Address Organization Details Last Updated DateTime 32826.9 4 g 22.9 kg/m2 177.8 cm 97.2 [degF] 102 /min 24 /min 98 % 98 % 148/88 mm[Hg] Annamarie Schmid RN [facility] 10:14:22 Social History Question Answer Notes LastModified by Organizat ion Details LastModified Time Tobacco Smoking Status Former Smoker Annamarie Schmid RN null, [facility] 02/09/2025 10:18:22 Are You Blind Or [...] not available 02/09/2025 Where Do You Live? [facility] Information not available 02/09/2025 How Many Children [...] Functional Status Question Answer Note LastModified by [employer] Channel ion Details LastModified Time Do you use [...] anxious, or unable to sleep at night)? [id number] Information not available 02/09/2025 Do you have difficulty concentrating, remembering or making decisions? Yes Information no t available 02/09/2025 Family History Relationship Description Onset Age of this Age Resolved Age Notes LastModified by Organization Details LastModified Time Mother Myocardial infarction Not available 02/09 10:15:26 Father Malignant neoplastic disease Not available 2024 10:15:36 Medical History Condition Response HYPERTENSION Y HIGH CHOLESTEROL / HYPERLIPIDEMIA Y Past Encounters Encounter ID Performer Location Encounter Start Date Encounter Closed Date Diagnosis/Indication Diagnosis SNOMED-CT Code Diagnosis ICD10 Code Diagnosis Note [id number] Jorge Cm MD [facility] [address] [address] 02/09/2025 09:56:58 02/09/2025 11:10:11 Physical examination 2667835 Z00.00 [facility] e reviewedDi scussed diet and exercisePa tient questions answered Mild chron ic obstructive pulmonary disease 548798548 J44.9 Currently taking Trelegy, this is very expensive and he has not noticed improvemen t in breathing. Easy bruising 094492942 R23.3 Interested in Dermend Cervical spondylosis 387 309978 M47.812 Notes this is causing moderate pain and headaches Essential hypertension 16754437 I10 Well controlled with losartan Mixed hyperlipidemia 267 570104 E78.2 Well controlled with simvastati n, will check labs as follows Diabetes m ellitus screening 585051158 Z13.1 History of nicotine dependence 1903885810 70658304 Z87.891 LDCT: 50 year smoker, 1/2 ppd, 25 pack year. Ordered Health Concerns Section Related Observation LastModified by Organization Detai ls LastModified Time None Recorded Concern Status LastModified by Organization Details LastModified Time None Recorded Advance Directives Directive None Recorded Payers Insurance Date Sequence Insurance Name Policy Number Policy Lee Covered Member ID Lee Member ID Guarantor Name 02/23/2025 1 MED[place]ARE-[place] (MEDICARE) Steve Burns [id number] Steve Burns Notes Date Note Type [...] 25 pack year. Ordered [facility] [address] [facility], [facility] [address], [place], [address], [facility] [employer] 02/09/2025 10:52:19
--- OUTSIDE RECORDS SUMMARY | 2025-03-16 23:42 | XMS_ITS | Clinical Summary ---
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
--- NOTE | 2025-03-16 23:45 | ECG_ITS ---
Test Date: 2025-03-16 23:51:13 Measurements Intervals [place] Rate: 76 P: 27 ND: 147 QRS: 44 QRSD: 78 T: 63 QT: 373 QTc: 419 Interpretive Statements SINUS RHYTHM POSSIBLE RIGHT VENTRICULAR CONDUCTION DELAY [RSR (QR) IN V1/V2] VOLTAGE CRITERIA FOR LVH [MEETS CRITERIA IN ONE OF: R(aVL), S(V1), R(V5), R(V5/V6)+S(V1)] ABNORMAL ECG No previous ECG available for comparison Electronically Signed On 03-17-2025 10:04:10 CDT by Franklin Suh M.D.
[2025-03-16 23:54] VITALS: BP 183/106; PULSE 77; RESP 19; TEMP 37.1; O2SAT 100
[2025-03-17] VITALS (12 sets, daily range): BP systolic 173–197; BP diastolic 95–128; PULSE 63–84; RESP 12–25; O2SAT 98–100
[2025-03-17 00:04] LABS: Hematocrit 36.5 % (42.0-52.0); Hemoglobin 12.6 g/dL (14.0-18.0); Immature Granulocyte Percent A 0.2 % (0-0.5); Lymphocytes Absolute Auto 2.29 K/mm3 (0.9-3.2); Mean Corpuscular HGB Conc 34.5 g/dl (32-36); Mean Corpuscular Hemoglobin 31.0 pg (26-34); Mean Corpuscular Volume 89.7 fl (80-100); Nucleated Red Blood Cells Absolute Auto 0.000 K/mm3 (0.0-0.012); Nucleated Red Blood Cells Perc 0.0 % (0.0-0.2); Platelet Count Result 175 k/mm3 (150-375); Red Blood Count 4.07 M/mm3 (4.6-6.20); White Blood Count 6.1 K/mm3 (4.5-10.0)
[2025-03-17 00:20] LABS: INR 1.1; Prothrombin Time 14.0 Seconds (11.1-14.7)
[2025-03-17 00:21] LABS: Partial Thromboplastin Time 28.0 Seconds (22.3-36.8)
[2025-03-17 00:27] LABS: Alanine Aminotransferase 21 U/L (6-50); Albumin Level 4.6 g/dL (3.5-5.1); Alkaline Phosphatase 69 U/L (38-126); Anion Gap 8 mmol/L (4-12); Aspartate Amino Transferase 26 U/L (17-59); Bilirubin,Total 0.5 mg/dL (0.2-1.3); Blood Urea Nitrogen 14 mg/dL (9-20); Calcium 9.4 mg/dL (8.4-10.2); Carbon Dioxide 24 mmol/L (22-30); Chloride 95 mmol/L (98-107); Estimated CRCL calculation 64 ml/min; Estimated Glomerular Filt Rate > 60; Glucose 98 mg/dL (65-110); Lipase 47 U/L (23-300); Potassium 4.3 mmol/L (3.4-5.0); Sodium 127 mmol/L (137-145); Total Protein 7.1 g/dL (6.3-8.2)
[2025-03-17 00:35] LABS: Troponin I < 0.012 ng/mL (0.000-0.034)
--- NOTE | 2025-03-17 03:07 | ECG_ITS ---
Test Date: 2025-03-17 03:27:50 Measurements Intervals [place] Rate: 62 P: -5 [place]: 137 QRS: 26 QRSD: 78 T: 51 QT: 398 QTc: 406 Interpretive Statements SINUS RHYTHM MINIMAL VOLTAGE CRITERIA FOR LVH, CONSIDER NORMAL VARIANT [MEETS CRITERIA IN ONE OF: R(aVL), S(V1), R(V5), R(V5/V6)+S(V1)] ST ELEVATION, PROBABLY EARLY REPOLARIZATION [ST ELEVATION WITH NORMALLY INFLECTED T WAVE] NONSPECIFIC T-WAVE ABNORMALITY ABNORMAL ECG Compared to ECG 03/16/2025 23:51:13 ST (T wave) deviation now present Early repolarization now present T-wave abnormality now present Electronically Signed On 03-17-2025 10:06:24 CDT by Franklin Suh M.D.
[2025-03-17 04:17] LABS: Troponin I < 0.012 ng/mL (0.000-0.034)
[2025-03-17] MEDS: ASPIRIN 81 MG CHEWABLE TABLET 324 MG PO (04:26)
--- OUTSIDE RECORDS SUMMARY | 2025-03-17 05:11 | XMS_ITS | Clinical Summary ---
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
--- NOTE | 2025-03-17 05:21 | ED_ITS ---
HPI - Chest Pain General Chief Complaint: Chest Pain Stated Complaint: rib pain, chest tightness Time Seen by Provider: 03/17/25 04:55 History of Present Illness HPI narrative: 69-year-old male with history of hypertension presenting to the emergency department with complaints of chest pain that is no longer present. He states that he is concerned about a blood clot as he has a family friend the just of a PE. States that he has had some left-sided chest discomfort for years around his ribs and felt a palpable knot in the area where the symptoms began. Describes as a pulled muscle sensation. Denies any shortness a breath. No recent surgical procedures but did have an endoscopy for colonoscopy that was unremarkable several weeks ago. Denies any active chest pain at this time. No nausea, vomiting, back pain, fever, chills, abdominal pain, back pain, weakness or fatigue. No leg swelling or calf cramping sensations. No signs of a DVT. No history of DVT or thromboembolic disease. Does not take blood thinners. Related Data Home Medications ?Medication ?Instructions ?Recorded ?Confirmed ?Last Taken ?Type aspirin 81 mg tablet,delayed 81 mg PO DAILY 09/28/22 03/03/25 03/02/25 History release sildenafil 100 mg tablet 100 mg PO DIRECTED PRN Erectile 09/28/22 02/19/25 Unknown History Dysfunction simvastatin 40 mg tablet 40 mg PO DAILY 09/28/22 03/03/25 03/02/25 History fluticasone fur. 100 mcg-umeclid 1 inh inhalation Q24H 02/19/25 03/03/25 03/02/25 History 62.5 mcg-vilant 25 mcg inhalat.powder (Trelegy Ellipta) losartan 100 mg tablet 100 mg PO DAILY 02/19/25 03/03/25 03/02/25 History Allergies Allergy/AdvReac Type Severity Reaction Status Date / Time No Known Allergies Allergy Verified 03/16/25 23:41 Review of Systems 2 Review of Systems: As reviewed [facility]PI [facility] Past Medical History Medical History Adenomatous colon polyp History of hyperlipidemia History of hypertension Social History Social History Smoking packs per day: 1 Smoking cigarettes per day: 20.0 Years smoked: 30 Smoking pack-years: 30.00 Smoking status: Former smoker Tobacco type: cigarettes and e-cigarettes/vaping Additional smoking assessment comments: VAPES currently, quick cigarettes Alcohol intake: current Drinks per week: 4 Substance use: never Substance use type: does not use Living arrangements: with family Spiritual care concerns: No Exam 2 Narrative: GENERAL: [Well-appearing, well-nourished, and in no acute distress.] HEAD: [Normocephalic, atraumatic.] EYES: [PERRLA and EOMI.] ENT: Nares clear, no rhinorrhea or epistaxis. Mucous membranes moist. NECK: Supple. CHEST: [Clear to auscultation. No respiratory distress.] HEART: [Regular rate and rhythm]. No murmur heard. [Normal peripheral pulses.] ABDOMEN: [Soft, nondistended], [nontender], [No rigidity or guarding] EXTREMITIES: Normal range of motion. [No edema.] SKIN: Warm, dry, no rash. NEURO: [No focal deficits]. Alert and oriented [x3.] PSYCH: [Normal mood and affect.] Course Vital Signs Vital signs: Vital Signs Temperature 37.1 C 03/16/25 23:54 Pulse Rate 77 03/16/25 23:54 Respiratory Rate 19 03/16/25 23:54 Blood Pressure 183/106 H 03/16/25 23:54 Pulse Oximetry 100 03/16/25 23:54 Oxygen Delivery Room Air 03/16/25 23:54 Temperature 37.1 C 03/16/25 23:54 Pulse Rate 77 03/16/25 23:54 Respiratory Rate 19 03/16/25 23:54 Blood Pressure 183/106 H 03/16/25 23:54 Pulse Oximetry 100 03/16/25 23:54 Oxygen Delivery Room Air 03/17/25 04:31 MDM - Chest Pain MDM Narrative Medical decision making narrative: 69-year-old male with history of hypertension presenting to the emergency department with complaints of chest pain that is no longer present. He states that he is concerned about a blood clot as he has a family friend the just of a PE. States that he has had some left-sided chest discomfort for years around his ribs and felt a palpable knot in the area where the symptoms began. Describes as a pulled muscle sensation. Denies any shortness a breath. No recent surgical procedures but did have an endoscopy for colonoscopy that was unremarkable several weeks ago. Denies any active chest pain at this time. No nausea, vomiting, back pain, fever, chills, abdominal pain, back pain, weakness or fatigue. No leg swelling or calf cramping sensations. No signs of a DVT. No history of DVT or thromboembolic disease. Does not take blood thinners. Patient is mildly hypertensive but has history of hypertension and was hypertensive during his colonoscopy several weeks ago as well. Denies any symptoms at this time and states that he just wants to be checked out for a blood clot. No signs of DVT on examination. [place] criteria. D-dimer will be sufficient for clearing him via YEARS criteria from thromboembolic disease. Cardiac workup ordered including delta troponins, EKG, chest x-ray and basic labs. EKGs appear benign repolarization pattern without ST segment elevations concerning for ischemic evidence. Unchanged during delta EKG and he remains without any chest pain during repeat evaluations. No interventions provided. Troponins are negative, delta troponin negative, EKG unremarkable. No leukocytosis or significant anemia. Normal platelet count. Electrolytes are showing chronic mild hyponatremia without any acute changes. Normal creatinine, normal LFTs. Lipase negative. Chest x-ray shows no acute findings. D-dimer is negative. Patient is safe for discharge home with regular primary care provider follow-up to address his blood pressure. He was given return precautions. Medical Records Data Attestation: I reviewed the patient's medical records. Lab Data Attestation: I reviewed the patient's lab results. 03/16/25 23:57 03/16/25 23:57 Labs: Lab Results 03/16/25 03/17/25 03/17/25 Range/Units 23:57 03:32 04:44 WBC 6.1 (4.5-10.0) K/mm3 RBC 4.07 L (4.6-6.20) M/mm3 Hgb 12.6 L (14.0-18.0) g/dL Hct 36.5 L (42.0-52.0) % MCV 89.7 (80-100) fl MCH 31.0 (26-34) pg MCHC 34.5 (32-36) g/dl RDW 11.7 (11.5-14.5) % Plt Count 175 (150-375) k/mm3 MPV 9.4 (7.4-10.4) fl Immature Gran % (Auto) 0.2 (0-0.5) % Neut % (Auto) 46.5 (45.5-73.1) % Lymph % (Auto) 37.5 (18.3-44.2) % Fleming % (Auto) 10.5 H (2.6-8.5) % Eos % (Auto) 4.6 H (0-4.4) % Baso % (Auto) 0.7 (0.2-1.2) % Lymph # (Auto) 2.29 (0.9-3.2) K/mm3 Fleming # (Auto) 0.6 (0.1-0.6) K/mm3 Eos # (Auto) 0.3 (0-0.3) K/mm3 Baso # (Auto) 0.0 (0.0-0.1) K/mm3 Abs Immat Gran (auto) 0.01 (0.00-0.031) K/mm3 Absolute Neuts (auto) 2.8 (1.3-6.7) K/mm3 Absolute Nucleated RBC 0.000 (0.0-0.012) K/mm3 Nucleated RBC % 0.0 (0.0-0.2) % PT 14.0 (11.1-14.7) Seconds INR 1.1 APTT 28.0 (22.3-36.8) Seconds D-Dimer 0.32 (<0.48) ug/mL Sodium 127 L (137-145) mmol/L Potassium 4.3 (3.4-5.0) mmol/L Chloride 95 L (98-107) mmol/L Carbon Dioxide 24 (22-30) mmol/L Anion Gap 8 (4-12) mmol/L BUN 14 (9-20) mg/dL Creatinine 0.97 (0.7-1.3) mg/dL Estim Creat Clear Calc 64 ml/min Estimated GFR > 60 (59 - ) Glucose 98 (65-110) mg/dL Calcium 9.4 (8.4-10.2) mg/dL Total Bilirubin 0.5 (0.2-1.3) mg/dL AST 26 (17-59) U/L ALT 21 (6-50) U/L Alkaline Phosphatase 69 (38-126) U/L Troponin I < 0.012 < 0.012 (0.000-0.034) ng/mL Total Protein 7.1 (6.3-8.2) g/dL Albumin 4.6 (3.5-5.1) g/dL Lipase 47 (23-300) U/L Imaging Data Attestation: I personally reviewed and interpreted this imaging study as follows: My impression: No acute cardiopulmonary disease. Discharge Plan Discharge Clinical Impression: Chest pain, Asymptomatic hypertension Patient Disposition: Home Condition: Stable Instructions: Antibiotic Form, Chest Pain (ED), Chest Wall Pain (ED) Additional Instructions: No signs of blood clot, no signs of cardiac damage. Follow-up with your regular doctor on a short-term basis to address your blood pressure with additional medication management. Follow-up with them and return with any emergent concerns. Patient Language: Hungarian Prescriptions: No Action aspirin 81 mg Tablet,Delayed Release (Dr/Ec) 81 mg PO DAILY Patient Comments: every other day sildenafil 100 mg tablet 100 mg PO DIRECTED PRN (Reason: Erectile Dysfunction) simvastatin 40 mg tablet 40 mg PO DAILY losartan 100 mg tablet 100 mg PO DAILY Trelegy Ellipta 100-62.5-25 mcg blister with device 1 inh INHALATION Q24H Follow-up/Referrals: Peterson,Hanh Muñiz, INDUSTRIAL PSYCHOLOGIST [Primary Care Provider] - Time of Disposition: 05:27
== END 2025-03-17 05:34 | disposition home or self-care (01) ==
PROVIDERS: Emergency Provider Student in an Organized Health Care Education/Training Program
DX: R07.9 Chest pain, unspecified (principal); I10 Essential (primary) hypertension; E78.5 Hyperlipidemia, unspecified; F17.290 Nicotine dependence, other tobacco product, uncomplicated; Z86.0101 Personal history of adenomatous and serrated colon polyps; Z79.82 Long term (current) use of aspirin; Z79.899 Other long term (current) drug therapy; R94.31 Abnormal electrocardiogram [ECG] [EKG]
CPT/HCPCS: 36415; 71046; 80053; 83690; 84484; 85025; 85380; 85610; 85730; 93005; 99284; A9270